=== PATIENT | male | born 1965 | race Caucasian/White ===

== ENCOUNTER 2018-11-09 21:28 | Emergency (ER) | payer OTHER, SELFPAY ==
[2018-11-09 21:29] VITALS: BP 120/75; PULSE 77; RESP 16; TEMP 37.1; O2SAT 96; BMI 29.7
--- NOTE | 2018-11-09 21:37 | EKG12_ITS ---
Test Reason : Blood Pressure : / mmHG Vent. Rate : 071 BPM Atrial Rate : 071 BPM P-R Int : 160 ms QRS Dur : 088 ms QT Int : 396 ms P-R-T Axes : 047 -08 005 degrees QTc Int : 430 ms Normal sinus rhythm Normal ECG Confirmed by JHONATAN PALMER, DANIELE ([id number]), marketing editor TAD WU ([id number]) on 11/12/2018 10:56:48 AM Referred By: Confirmed By:DANIELE ISRAEL MD
--- NOTE | 2018-11-09 21:37 | RAD_ITS ---
STUDY: X-RAY - LEFT SHOULDER REASON FOR EXAM: Male, 53 years old. Pain TECHNIQUE: 3 view(s) of the shoulder. COMPARISON: None. FINDINGS: Normal glenohumeral articulation. Normal acromioclavicular joint. Normal acromion. Normal humeral head and visualized proximal humerus. The soft tissue structures are unremarkable. Normal visualized pulmonary apex. RAD/Shoulder min 2 Views IMPRESSION: Normal x-ray examination of the shoulder. Electronically Signed: Charli Sanchez MD at 22:07 EDT Tel , Service support ,
--- NOTE | 2018-11-09 21:40 | RAD_ITS ---
STUDY: X-RAY CHEST REASON FOR EXAM: Male, 53 years old. Pain radiating down left arm TECHNIQUE: Frontal and lateral views of the chest. COMPARISON: 04/28/2017 FINDINGS: The lungs are clear and expanded. There is no demonstrated pleural abnormality. Normal size heart. Normal mediastinum and amy. Normal visualized pulmonary arteries. Normal visualized aortic arch and descending thoracic aorta. Normal visualized thoracic spine. Normal visualized ribs, clavicles, and shoulders. There is no demonstrated abnormality of the visualized soft tissue structures of the upper abdomen. RAD/Chest PA and Lateral IMPRESSION: Normal x-ray examination of the chest. Electronically Signed: Charli Sanchez MD at 22:08 EDT Tel , Service support ,
--- NOTE | 2018-11-09 22:14 | ED.DCSUM_ITS ---
- ER Visit Summary Date of Service: 11/09/18 Chief Complaint: Left shoulder pain History of Present Illness: The patient is a 53 M presents to the emergency department with a week of posterior left shoulder pain. The patient does heavy physical labor. He states that he woke Monday morning and had an ache in his upper back behind his left shoulder. He states that it was very stiff to move. Throughout the day, did get a little bit better. He states the pain is persisted this week. He seen a chiropractor twice with little improvement. He states if he takes ibuprofen it seems to help. He denies chest pain. He denies shortness of breath. He denies any swelling of the arm. He states if he tries to pull the arm up, he will get pain. Is not had fever or chills. He has no history of immunosuppression. Physical Examination: Vital signs reviewed General: Well-nourished, well-developed Head: Normocephalic, atraumatic Eyes: Pupils equal and reactive, extraocular muscles intact Neck, supple, no lymphadenopathy Heart: Regular rate and rhythm Respiratory: No distress, clear bilaterally Abdomen: Soft, nontender, nondistended, no peritoneal signs Back: Nontender Extremities: Nontender, no edema, no cords Skin: Normal color no rash Neuro: Alert and oriented, no focal or lateralizing deficits Test Results: [] Emergency Department Course and Treatment: The patient's shoulder has no erythema or edema. Skin is intact. The pulses of the upper extremity are normal. He has no swelling. He is point tender over the rhomboid musculature into the end of the trapezius. This does cause rather significant pain. There is no fluctuance or evidence of infectious process. EKG was obtained. It showed sinus rhythm. There is no acute ischemia. He has no evidence of right ventricular strain. He is not hypoxic. He is not tachypneic. He has no pleuritic pain. I have no suspicion for pulmonary embolus. I did obtain a chest x-ray and a shoulder x-ray. These are both unremarkable. My suspicion is that this is likely muscular. I am going to treat the patient as such. He is comfortable with this plan of care. He will be discharged home. Treatment Plan: [] Disposition: Discharge Impression: 1. Left posterior shoulder strain This note was generated with [employer]arnextation software. It may contain incorrect words, spelling, and punctuation that were not noted in review of the chart prior to signing ED Disposition - Plan for ED Patient: Instructions: ED Spasm Back No Trauma Prescriptions: Prednisone 10 mg PO UD #33 tab Cyclobenzaprine [Flexeril] 10 mg PO TID PRN #20 tab PRN Reason: Muscle Spasm Referrals: Kirby Ross DO [Primary Care Provider] -
[2018-11-09] MEDS: predniSONE 20 MG Tablet 60 MG PO (22:37)
== END 2018-11-09 22:41 | disposition home or self-care (01) ==
PROVIDERS: Emergency Provider Emergency Medicine; Family Provider Family Medicine; PCP Family Medicine
DX: S46.812A Strain of other muscles, fascia and tendons at shoulder and upper arm level, left arm, initial encounter (principal); X58.XXXA Exposure to other specified factors, initial encounter; Y93.89 Activity, other specified; Y92.9 Unspecified place or not applicable
CPT/HCPCS: 71046; 73030; 93005; 99283